=== PATIENT | female | born 1990 | race African-American/Black ===

== ENCOUNTER 2016-11-10 13:57 | Emergency (ER) | payer OTHER ==
[~2016-11-10] VITALS: Ht 160 cm; Wt 98.9 kg
[2016-11-10 14:40] LABS: HEMATOCRIT 36.3 % (36.0-46.0); MCH 27.4 PG (29.0-34.0); MCHC 33.6 G/DL (30.0-36.0); MCV 81.4 FL (83-99); MEAN PLAT.VOLUME 10.1 uM^3 (9.5-12.4); PLATELET COUNT 273 K/uL (156-360); RBC DIS.WIDTH-CV 12.4 % (11.8-14.6); RED BLOOD COUNT 4.46 M/uL (3.80-5.20); WHITE BLOOD COUNT 4.5 K/uL (4.1-10.2)
[2016-11-10 14:51] LABS: CHLORIDE 107 mEq/L (99-109); POTASSIUM 3.8 mEq/L (3.7-5.4); SODIUM 138 mEq/L (136-147)
[2016-11-10 14:53] LABS: GLUCOSE 108 mg/dL (70-99)
[2016-11-10 14:54] LABS: ANION GAP 5 MEQ/L (2-14)
[2016-11-10 14:55] LABS: TOTAL BILIRUBIN 0.4 mg/dL (0.0-1.0)
[2016-11-10 14:56] LABS: ALKALINE PHOSPHATASE 64 IU/L (3-129)
[2016-11-10 14:57] LABS: GFR ESTIMATE (CALCULATED) > 59 mL/min/
[2016-11-10 14:58] LABS: UREA NITROGEN (BUN) 8 mg/dL (9-23)
[2016-11-10 15:00] LABS: LIPASE 23 U/L (1.0-51.0)
[2016-11-10 15:07] LABS: QUANTITATIVE HCG < 4.0 MIU/ML
[2016-11-10 15:10] LABS: ADD MIUA? YES; BILIRUBIN NEGATIVE; BLOOD NEGATIVE; COLOR YELLOW ((YELLOW)); GLUCOSE (STRIP) NEGATIVE; KETONES NEGATIVE; LEUKOCYTES NEGATIVE; NITRITE NEGATIVE; PROTEIN (STRIP) NEGATIVE; SPECIFIC GRAVITY 1.017 (1.000-1.030); UROBILINOGEN 0.2 MG/DL (0.2-1.0)
[2016-11-10 15:12] LABS: BACTERIA RARE /HPF; EPITHELIAL CELLS RARE /HPF; MUCUS TRACE /LPF; RED BLOOD CELLS 0-5 /HPF (0-5); WHITE BLOOD CELLS 0-5 /HPF (0-5)
[2016-11-10] MEDS ORDERED: BENTYL20 MG PO (16:13)
[2016-11-10] MEDS ORDERED: MIRALAX255 GM PO (16:13)
[2016-11-10] MEDS ORDERED: ZOFRAN ODT4 MG PO (16:13)
[2016-11-10 16:29] VITALS: BP 133/81
== END 2016-11-10 16:31 | disposition home or self-care (01) ==
LOC: EXP 13:57 → EME 13:57 → EXP 16:31
PROVIDERS: Nurse Practitioner Family
DX: K59.00 Constipation, unspecified (principal); N91.2 Amenorrhea, unspecified
CPT/HCPCS: 74020; 80053; 81003; 83690; 84702; 85027; 99281; 99284

== ENCOUNTER 2016-12-26 21:56 | Emergency (ER) | payer OTHER ==
[~2016-12-26] VITALS: Ht 157.5 cm; Wt 99.2 kg
[~2016-12-26 21:56] MED LIST: BENTYL20 MG PO; MIRALAX255 GM PO; ZOFRAN ODT4 MG PO
[2016-12-26 22:46] LABS: HEMATOCRIT 34.2 % (36.0-46.0); MCH 27.7 PG (29.0-34.0); MCHC 34.2 G/DL (30.0-36.0); MEAN PLAT.VOLUME 10.8 uM^3 (9.5-12.4); PLATELET COUNT 255 K/uL (156-360); RBC DIS.WIDTH-CV 12.5 % (11.8-14.6); RBC DIS.WIDTH-SD 36.6 % (39-53); RED BLOOD COUNT 4.22 M/uL (3.80-5.20); WHITE BLOOD COUNT 6.8 K/uL (4.1-10.2)
[2016-12-26 22:47] LABS: ADD MIUA? YES; BILIRUBIN NEGATIVE; BLOOD NEGATIVE; COLOR YELLOW ((YELLOW)); GLUCOSE (STRIP) NEGATIVE; KETONES NEGATIVE; LEUKOCYTES NEGATIVE; NITRITE NEGATIVE; PROTEIN (STRIP) NEGATIVE; SPECIFIC GRAVITY 1.021 (1.000-1.030)
[2016-12-26 22:52] LABS: BACTERIA RARE /HPF; EPITHELIAL CELLS RARE /HPF; MUCUS TRACE /LPF; RED BLOOD CELLS 0-5 /HPF (0-5); UCUL ADDED? NO; WHITE BLOOD CELLS 0-5 /HPF (0-5)
[2016-12-26 22:57] LABS: CHLORIDE 109 mEq/L (99-109); POTASSIUM 3.6 mEq/L (3.7-5.4); SODIUM 140 mEq/L (136-147)
[2016-12-26 22:59] LABS: GLUCOSE 100 mg/dL (70-99)
[2016-12-26 23:00] LABS: ANION GAP 6 MEQ/L (2-14)
[2016-12-26 23:01] LABS: TOTAL BILIRUBIN 0.2 mg/dL (0.0-1.0)
[2016-12-26 23:02] LABS: ALKALINE PHOSPHATASE 70 IU/L (3-129)
[2016-12-26 23:03] LABS: GFR ESTIMATE (CALCULATED) > 59 mL/min/
[2016-12-26 23:04] LABS: UREA NITROGEN (BUN) 12 mg/dL (9-23)
[2016-12-26 23:12] LABS: QUANTITATIVE HCG < 4.0 MIU/ML
[2016-12-27 00:10] LABS: LIPASE 34 U/L (1.0-51.0)
[2016-12-27] MEDS ORDERED: CITRATE OF MAG296 ML PO (01:13)
[2016-12-27 01:57] VITALS: BP 119/66
== END 2016-12-27 01:58 | disposition home or self-care (01) ==
LOC: EME 21:56 → EXP 21:56
DX: R07.89 Other chest pain (principal); R10.9 Unspecified abdominal pain; D64.9 Anemia, unspecified; K59.00 Constipation, unspecified
CPT/HCPCS: 80053; 81003; 83690; 84702; 85027; 93005; 99281; 99285

== ENCOUNTER 2017-05-17 14:30 | Emergency (ER) | payer OTHER ==
[~2017-05-17] VITALS: Ht 157.5 cm; Wt 99.2 kg
[~2017-05-17 14:30] MED LIST changes: +CITRATE OF MAG296 ML PO
[2017-05-17 14:59] LABS: APPEARANCE SL.HAZY ((CLEAR)); BILIRUBIN NEGATIVE; BLOOD NEGATIVE; COLOR YELLOW ((YELLOW)); GLUCOSE (STRIP) NEGATIVE; KETONES NEGATIVE; LEUKOCYTES NEGATIVE; NITRITE NEGATIVE; PROTEIN (STRIP) 30; SPECIFIC GRAVITY 1.029 (1.000-1.030)
[2017-05-17 15:01] LABS: HEMATOCRIT 37.2 % (36.0-46.0); HEMOGLOBIN 12.7 G/DL (11.9-15.5); MCH 27.9 PG (29.0-34.0); MCHC 34.1 G/DL (30.0-36.0); MCV 81.6 FL (83-99); PLATELET COUNT 274 K/uL (156-360); RBC DIS.WIDTH-SD 38.5 % (39-53); RED BLOOD COUNT 4.56 M/uL (3.80-5.20); WHITE BLOOD COUNT 4.9 K/uL (4.1-10.2)
[2017-05-17 15:10] LABS: BACTERIA RARE /HPF; CALCIUM OXALATE CRYSTALS 1+ /HPF; EPITHELIAL CELLS 1+ /HPF; MUCUS TRACE /LPF; RED BLOOD CELLS 0-5 /HPF (0-5); UCUL ADDED? NO; WHITE BLOOD CELLS 0-5 /HPF (0-5)
[2017-05-17 15:11] LABS: ALBUMIN 4.2 g/dL (3.2-4.8); CHLORIDE 108 mEq/L (99-109); POTASSIUM 3.9 mEq/L (3.7-5.4); SODIUM 140 mEq/L (136-147)
[2017-05-17 15:13] LABS: GLUCOSE 82 mg/dL (70-99)
[2017-05-17 15:14] LABS: TOTAL PROTEIN 7.5 g/dL (6.4-8.3)
[2017-05-17 15:15] LABS: TOTAL BILIRUBIN 0.4 mg/dL (0.0-1.0)
[2017-05-17 15:17] LABS: ALKALINE PHOSPHATASE 67 IU/L (3-129); CREATININE 0.8 mg/dL (0.6-1.3); GFR ESTIMATE (CALCULATED) > 59 mL/min/
[2017-05-17 15:18] LABS: UREA NITROGEN (BUN) 11 mg/dL (9-23)
[2017-05-17 15:19] LABS: AST (GOT) 17 IU/L (2-34)
[2017-05-17 15:20] LABS: ALT (GPT) 13 IU/L (3-49)
[2017-05-17 15:25] LABS: QUANTITATIVE HCG < 4.0 MIU/ML
[2017-05-17] MEDS ORDERED: BENTYL20 MG PO (15:59)
[2017-05-17] MEDS ORDERED: MIRALAX17 GM PO (15:59)
[2017-05-17 16:17] VITALS: BP 113/79
== END 2017-05-17 16:18 | disposition home or self-care (01) ==
LOC: EME 14:30
DX: R10.32 Left lower quadrant pain (principal)
CPT/HCPCS: 80053; 81003; 84702; 85027; 99281; 99283